=== PATIENT | male | born 2000 | race Two or more races ===

== ENCOUNTER 2020-06-10 09:38 | Outpatient (REF) | payer MEDICAID, SELFPAY | END 2020-06-10 09:39 | disposition home or self-care (01) | LOC: HO.LAB 09:38 | PROVIDERS: Visit Provider Internal Medicine | DX: Z20.828 Contact with and (suspected) exposure to other viral communicable diseases (principal) | CPT/HCPCS: C9803; U0003 ==

== ENCOUNTER 2023-03-05 11:17 | Emergency (ER) | payer MEDICAID, SELFPAY ==
--- NOTE | ~2023-03-05 | CT_ITS ---
EXAMINATION: CT ABDOMEN AND PELVIS WITH CONTRAST CLINICAL INFORMATION: Lower abdominal pain COMPARISON: None available. TECHNIQUE: Multidetector volumetric images were obtained from the superior aspect of the liver through the pubic symphysis following administration 85 mL of Omnipaque 350 intravenous contrast. Sagittal and coronal reformatted images were obtained on the technologist's workstation. Oral contrast: No This CT examination was performed using dose optimization techniques as appropriate, variously including the following: *Automated exposure control *Adjustment of mA and/or kV according to patient size (this includes techniques or standardized protocols for targeted exams where dose is matched to indication/reason for exam; i.e. extremities or head) *Use of iterative reconstruction technique DLP: 398 mGy-cm FINDINGS: LUNG BASES: The visualized lung bases are unremarkable. LIVER, GALLBLADDER, AND BILIARY TREE: The liver is normal in size, shape, and attenuation. There are 2 small hypodense lesions in the liver, too small to characterize, statistically likely to be cysts. No significant biliary duct dilatation. The gallbladder is unremarkable with no evidence of radiopaque gallstones, gallbladder wall thickening, or obvious pericholecystic inflammatory changes. PANCREAS: Appears unremarkable. No acute inflammatory changes seen. SPLEEN: Unremarkable. ADRENAL GLANDS: Unremarkable. KIDNEYS AND URETERS: The kidneys are normal in size, shape, and attenuation. No hydronephrosis, hydroureter, or calculi seen. No perinephric stranding. BLADDER: There is mild wall thickening of the anterior aspect of the urinary bladder, nonspecific. No calculi. GASTROINTESTINAL TRACT: Stomach is nondistended. No small or large bowel obstruction. There is apparent wall thickening of the sigmoid colon and the rectosigmoid region. This may be related to lack of distention. Colitis cannot be excluded. Clinically correlate. The appendix is not visualized. Apparent surgical clips in the region of the cecum, could reflect prior appendectomy. Clinically correlate. No free fluid. No free air. ABDOMINAL WALL: No significant hernia is appreciated. LYMPH NODES: There are multiple lymph nodes seen in the mesentery, more prominent in the right lower abdomen, including lymph node measuring up to 0.7 cm AP. This is nonspecific, indeterminate etiology. VASCULAR: Normal caliber aorta. PELVIC VISCERA: Within normal limits OSSEOUS STRUCTURES: No evidence of acute osseous abnormality. CT/CT abdomen pelvis w IV con IMPRESSION: 1. Apparent wall thickening/prominence of the sigmoid colon and the rectosigmoid region. This may be due to lack of distention. Colitis cannot be excluded. Clinically correlate. 2. The appendix not visualized. There are surgical clips in the cecal area, suggestive of prior appendectomy. Clinically correlate. No obvious pericecal inflammatory changes are seen 3. Mesenteric lymph nodes, more prominent in the right lower abdomen, measuring up to 0.7 cm in short axis. Some nonspecific, of indeterminate etiology. Clinically correlate. Follow-up imaging for reassessment as clinically warranted. 4. Mild thickening of the anterior wall of the bladder. This could reflect cystitis. Correlate with urinalysis. 5. Additional findings and details as above. Fleischner guidelines were followed.
[2023-03-05 11:19] VITALS: BP 128/86; PULSE 66; RESP 17; TEMP 37.2; O2SAT 98; BMI 21.9
--- NOTE | 2023-03-05 11:19 | ED.NAVMDI ---
HPI - Nausea/Vomiting/Diarrhea General Stated complaint: Abd pain Related Data Allergies Allergy/AdvReac Type Severity Reaction Status Date / Time No Known Allergies Allergy Verified 03/05/23 11:18 Course Course Course Narrative: This is an RME: Additional HPI, ROS, PE not included below will be deferred to primary provider. This is a 22-year-old male, with no known medical problems, presenting to the emergency department with complaints of vomiting, diarrhea, and abdominal pain x 4 days. Symptoms started with vomiting, chills, and subjective fevers on friday. He then developed diarrhea and abdominal pain. Reporting abdominal pain as a 3/10 pain. Abdomen is soft, nontender. VSS. Plan: Labs, UA, Covid/flu/rsv, influenza swab
[2023-03-05 11:38] LABS: MANUAL DIFF FLAG NO
[2023-03-05 11:40] LABS: Basophils Percent Auto 0.1 % (0-2); Eosinophils Absolute Auto 0.1 X10*3/uL (0.0-0.4); Eosinophils Percent Auto 0.7 % (0-4); Hematocrit 47.1 % (42.0-52.0); Hemoglobin 15.5 g/dl (14.0-18.0); Imm Gran Abs Auto 0.02 X10*3/uL (0.00-0.03); Imm Gran Pct Auto 0.2 % (0.0-0.4); Lymphocytes Absolute Auto 1.9 X10*3/uL (1.2-4.9); Lymphocytes Percent Auto 21.2 % (20-40); Mean Corpuscular HGB Conc 32.9 g/dl (31.0-36.0); Mean Corpuscular Hemoglobin 29.2 pg (27.0-33.0); Mean Corpuscular Volume 88.7 fL (80.0-98.0); Monocytes Absolute Auto 0.8 X10*3/uL (0.1-1.2); Monocytes Percent Auto 9.2 % (2-11); Neutrophils Absolute Auto 6.2 x10*3/uL (2.0-8.3); Neutrophils Percent Auto 68.6 % (45-73); Platelet Count 250 X10*3/uL (160-400); Red Blood Count 5.31 X10*6/uL (4.60-5.80); Red Cell Distribution Width 13.7 % (11.0-16.0); White Blood Count 9.1 X10*3/uL (4.8-10.8)
[2023-03-05 11:53] LABS: Alanine Aminotransferase 11 U/L (0-40); Albumin Level 4.2 g/dL (3.5-5.0); Alkaline Phosphatase 56 U/L (39-117); Anion Gap 10 (12-20); Aspartate Amino Transferase 14 U/L (5-37); Bilirubin Direct 0.2 mg/dL (0.0-0.5); Bilirubin Total 0.6 mg/dL (0.0-1.0); Blood Urea Nitrogen 7 mg/dL (9-16); Calcium 9.5 mg/dL (8.4-10.2); Carbon Dioxide 27 mmol/L (22-29); Chloride 106 mmol/L (96-108); Creatinine Clr Calc Pharmacy 113.6; Estimated Glomerular Filt Rate > 60; Glucose Random 102 mg/dL (60-115); Lipase 24 U/L (8-78); Magnesium 2.1 mg/dL (1.6-2.6); Potassium 3.9 mmol/L (3.3-5.1); Sodium 139 mmol/L (135-145); Total Protein 7.6 g/dL (6.5-8.0)
[2023-03-05 12:05] LABS: IDNOW Serial# 08D9AD1C; Influenza A Negative (Negative); Influenza B2 Negative (Negative)
[2023-03-05 12:18] LABS: Influenza A PCR NEGATIVE (Negative); Influenza B PCR NEGATIVE (Negative); Resp Syncy Virus RNA Qual PCR NEGATIVE (Negative); SARS COV2 PCR INHOUSE NEGATIVE (Negative)
[2023-03-05 15:29] VITALS: BP 122/82; PULSE 51; RESP 17; TEMP 36.5; O2SAT 100
--- NOTE | 2023-03-05 15:40 | ED_ITS ---
HPI - Abdominal Pain General Chief Complaint: Abdominal Pain Stated Complaint: Abd pain Time Seen by Provider: 03/05/23 14:24 History of Present Illness HPI narrative: Patient is a 23-year-old male presents today with having a lower abdominal pain. Positive decreased appetite. Positive diarrhea. Positive generalized malaise. Status post appendectomy when he was 6. No coughing no congestion or respiratory symptoms. Positive generalized malaise. No penile discharge. No fever no chills. Diarrhea is green in color. patient from home. Related Data Allergies Allergy/AdvReac Type Severity Reaction Status Date / Time No Known Allergies Allergy Verified 03/05/23 11:18 Review of Systems Review of Systems Positive abdominal Yes all other systems are reviewed and are negative PMFSH Past Medical History Attestation statement: The following information was validated with the patient. Social History Social History Alcohol intake: never Smoked in Last 30 Days: No Use of substances other than those prescribed or required for medical reasons: No Advance Directives: No Advance Directives Information Provided: No Physical Exam ED Vital Signs: Vital Signs - 24 hr 03/05/23 11:19 03/05/23 15:29 03/05/23 16:27 Temperature 99 F 97.7 F Pulse Rate 66 51 60 Respiratory Rate 17 17 17 Blood Pressure 128/86 122/82 119/71 Pulse Oximetry 98 100 98 Oxygen Delivery Method Room Air Room Air Room Air 03/05/23 18:26 Temperature Pulse Rate 53 Respiratory Rate 17 Blood Pressure 115/70 Pulse Oximetry 98 Oxygen Delivery Method Room Air BMI result Body Mass Index 21.9 Appearance: Alert. Oriented X3. No acute distress. Eyes: Pupils equal, round and reactive to light. ENT: Pharynx normal. Neck: Normal inspection. Neck supple. No lymph nodes noted. No crepitus CVS: Normal heart rate and rhythm. Pulses normal. Normal S1 and S2 Respiratory: No respiratory distress. Breath sounds normal. No Wheezing. No rales Abdomen: Soft and nontender. No rigidity. No distention. good BS x4 Skin: Skin warm and dry. Normal skin color. Normal skin turgor. Extremities: No lower extremity edema. Neurovascular intact to all extremities. No Lacerations. No Rash Neuro: Oriented X 3. No motor deficit. No sensory deficit. Moving all extermities. No slurred speech Medical Decision Making Medical Decision Making [facility] Narrative: Patient had diffuse abdominal pain. Status post appendectomy done in the past. Positive history of nausea vomiting diarrhea. CT scan of the abdomen showed no acute evidence of obstruction abscess perforation. White count is normal. Electrolytes are unremarkable. Patient's CT scan of the abdomen pelvis showed no acute evidence of obstruction no abscess no perforation. Status post appendectomy. Urine showed no signs of infection. Will discharge patient home. Differential Diagnosis Differential Diagnoses: The differential diagnosis associated with the presentation includes Colitis, diverticulitis, obstruction, abscess, perforation Lab Data [facility] Lab Attestation statement: I reviewed the patient's lab results. 03/05/23 11:33 03/05/23 11:33 Labs: Lab Results 03/05/23 03/05/23 03/05/23 Range/Units 11:33 11:33 11:33 WBC 9.1 (4.8-10.8) X10*3/uL RBC 5.31 (4.60-5.80) X10*6/uL Hgb 15.5 (14.0-18.0) g/dl Hct 47.1 (42.0-52.0) % MCV 88.7 (80.0-98.0) fL MCH 29.2 (27.0-33.0) pg MCHC 32.9 (31.0-36.0) g/dl RDW 13.7 (11.0-16.0) % Plt Count 250 (160-400) X10*3/uL MPV 9.0 L (9.4-12.4) fL Immature Gran % (Auto) 0.2 (0.0-0.4) % Neut % (Auto) 68.6 (45-73) % Lymph % (Auto) 21.2 (20-40) % [place] % (Auto) 9.2 (2-11) % Eos % (Auto) 0.7 (0-4) % Baso % (Auto) 0.1 (0-2) % Lymph # (Auto) 1.9 (1.2-4.9) X10*3/uL [place] # (Auto) 0.8 (0.1-1.2) X10*3/uL Eos # (Auto) 0.1 (0.0-0.4) X10*3/uL Baso # (Auto) 0.0 (0.0-0.2) X10*3/uL Abs Immat Gran (auto) 0.02 (0.00-0.03) X10*3/uL Absolute Neuts (auto) 6.2 (2.0-8.3) x10*3/uL Absolute Nucleated RBC 0.000 (0.0-0.012) X10*3/uL Nucleated RBC % (auto) 0.0 (0.0-0.2) /100WBC Sodium 139 (135-145) mmol/L Potassium 3.9 (3.3-5.1) mmol/L Chloride 106 (96-108) mmol/L Carbon Dioxide 27 (22-29) mmol/L Anion Gap 10 L (12-20) BUN 7 L (9-16) mg/dL Creatinine 0.94 (0.5-1.4) mg/dL Estim Creat Clear Calc 113.6 Estimated GFR > 60 Random Glucose 102 (60-115) mg/dL Calcium 9.5 (8.4-10.2) mg/dL Magnesium 2.1 (1.6-2.6) mg/dL Total Bilirubin 0.6 (0.0-1.0) mg/dL Direct Bilirubin 0.2 (0.0-0.5) mg/dL AST 14 (5-37) U/L ALT 11 (0-40) U/L Alkaline Phosphatase 56 (39-117) U/L Total Protein 7.6 (6.5-8.0) g/dL Albumin 4.2 (3.5-5.0) g/dL Lipase 24 (8-78) U/L Urine Color Urine Appearance Urine pH (5.0-9.0) Ur Specific [place] (1.005-1.025) Urine Protein (Neg-Trace) mg/dL Urine Glucose (UA) (Negative) mg/dL Urine Ketones (Negative) mg/dL Urine Blood (Negative) Urine Nitrite (Negative) Ur Leukocyte Esterase (Negative) Influenza Type A (CECY) Negative (Negative) Influenza Type A (PCR) (Negative) Influenza Type B (CECY) Negative (Negative) Influenza Type B (PCR) (Negative) Influenza A & B Note See Note RSV RNA Qual (PCR) (Negative) SARS-CoV-2 RNA (RT-PCR) (Negative) 03/05/23 03/05/23 Range/Units 11:33 18:56 WBC (4.8-10.8) X10*3/uL RBC (4.60-5.80) X10*6/uL Hgb (14.0-18.0) g/dl Hct (42.0-52.0) % MCV (80.0-98.0) fL MCH (27.0-33.0) pg MCHC (31.0-36.0) g/dl RDW (11.0-16.0) % Plt Count (160-400) X10*3/uL MPV (9.4-12.4) fL Immature Gran % (Auto) (0.0-0.4) % Neut % (Auto) (45-73) % Lymph % (Auto) (20-40) % [place] % (Auto) (2-11) % Eos % (Auto) (0-4) % Baso % (Auto) (0-2) % Lymph # (Auto) (1.2-4.9) X10*3/uL [place] # (Auto) (0.1-1.2) X10*3/uL Eos # (Auto) (0.0-0.4) X10*3/uL Baso # (Auto) (0.0-0.2) X10*3/uL Abs Immat Gran (auto) (0.00-0.03) X10*3/uL Absolute Neuts (auto) (2.0-8.3) x10*3/uL Absolute Nucleated RBC (0.0-0.012) X10*3/uL Nucleated RBC % (auto) (0.0-0.2) /100WBC Sodium (135-145) mmol/L Potassium (3.3-5.1) mmol/L Chloride (96-108) mmol/L Carbon Dioxide (22-29) mmol/L Anion Gap (12-20) BUN (9-16) mg/dL Creatinine (0.5-1.4) mg/dL Estim Creat Clear Calc Estimated GFR Random Glucose (60-115) mg/dL Calcium (8.4-10.2) mg/dL Magnesium (1.6-2.6) mg/dL Total Bilirubin (0.0-1.0) mg/dL Direct Bilirubin (0.0-0.5) mg/dL AST (5-37) U/L ALT (0-40) U/L Alkaline Phosphatase (39-117) U/L Total Protein (6.5-8.0) g/dL Albumin (3.5-5.0) g/dL Lipase (8-78) U/L Urine Color Yellow Urine Appearance Clear Urine pH 6.0 (5.0-9.0) Ur Specific [place] >= 1.030 H (1.005-1.025) Urine Protein Trace (Neg-Trace) mg/dL Urine Glucose (UA) Negative (Negative) mg/dL Urine Ketones 15 (Negative) mg/dL Urine Blood Negative (Negative) Urine Nitrite Negative (Negative) Ur Leukocyte Esterase Negative (Negative) Influenza Type A (CE[facility]) (Negative) Influenza Type A (PCR) NEGATIVE (Negative) Influenza Type B (CE[facility]) (Negative) Influenza Type B (PCR) NEGATIVE (Negative) Influenza A & B Note RSV RNA Qual (PCR) NEGATIVE (Negative) SARS-CoV-2 RNA (RT-PCR) NEGATIVE (Negative) Independent Interpretation I performed an independent interpretation of an: CT Scan Interpretation: CT of the abdomen pelvis negative for obstruction no abscess no perforation Radiology Impression Discussion of test interpretation with radiology: I have reviewed the radiologist's reading. Chronic Conditions Status post appendectomy Medications Administered Discontinued Medications Generic Name Dose Route Start Last Admin Trade Name Freq PRN Reason Stop Dose Admin Sodium Chloride 1,000 mls @ 999 mls/hr 03/05/23 15:45 03/05/23 16:34 Ns IV 03/05/23 16:45 999 mls/hr .Q1H1M PABLO Administration Iohexol 100 ml 03/05/23 17:05 03/05/23 17:06 Iohexol 350 Mg/Ml 100 Ml Infus..Btl IV 03/05/23 17:06 85 ml ONCE ONE Administration Ketorolac Tromethamine 15 mg 03/05/23 15:44 03/05/23 16:34 Ketorolac Tromethamine 15 Mg/Ml Vial IVPUSH 03/05/23 15:45 15 mg ONCE ONE Administration Ondansetron HCl 4 mg 03/05/23 15:44 03/05/23 16:34 Ondansetron Hcl 4 Mg/2 Ml Vial IVPUSH 03/05/23 15:45 4 mg ONCE ONE Administration Discharge Plan Discharge Clinical Impression: Abdominal pain Patient Disposition: Home, Self-Care Instructions: Abdominal Pain (ED) Referrals: PhysicianHumberto [Primary Care Provider] - 03/07/23
[2023-03-05 16:27] VITALS: BP 119/71; PULSE 60; RESP 17; O2SAT 98
[2023-03-05] MEDS: 0.9 % Sodium Chloride 1,000 ML 999 ML IV (16:34)
[2023-03-05] MEDS: Ketorolac Tromethamine 15 MG/ML VIAL IVPUSH (16:34)
[2023-03-05] MEDS: ondansetron HCL 4 MG/2 ML VIAL IVPUSH (16:34)
[2023-03-05] MEDS: iohexoL 350 MG/ML 100 ML INFUS..BTL IV (17:06)
[2023-03-05 18:26] VITALS: BP 115/70; PULSE 53; RESP 17; O2SAT 98
[2023-03-05 19:04] LABS: Appearance Urine Clear; Color Urine Yellow; Glucose Urine UA Negative (Negative); Leukocyte Esterase Urine Negative (Negative); Nitrite Urine Negative (Negative); Specific Gravity - Urine >= 1.030 (1.005-1.025); Urine Blood Negative (Negative); Urine Ketones 15 mg/dL (Negative); Urine Protein Trace mg/dL (Neg-Trace)
[2023-03-05 19:28] VITALS: BP 111/67; PULSE 61; RESP 18; TEMP 36.8; O2SAT 98
--- NOTE | 2023-03-05 19:29 | MHC.EDTECH ---
This tech assumed care of patient at 1900, hourly rounds and vitals were completed and patient is awaiting discharge at this time.
[2023-03-05 19:42] VITALS: BP 113/64; PULSE 53; RESP 16; O2SAT 99
== END 2023-03-05 19:44 | disposition home or self-care (01) ==
PROVIDERS: Physician Assistant Medical; Emergency Provider Emergency Medicine Emergency Medical Services
DX: R10.30 Lower abdominal pain, unspecified (principal); Z20.822 Contact with and (suspected) exposure to COVID-19; Z20.828 Contact with and (suspected) exposure to other viral communicable diseases
CPT/HCPCS: 0241U; 74177; 80048; 80076; 81003; 83690; 83735; 85025; 87502; 96361; 96374; 96375; 99284; 99285; J1885; J2405; Q9967